=== PATIENT | female | born 1980 | race Two or more races ===

== ENCOUNTER 2016-07-06 23:31 | Emergency (ER) | payer BC, MEDICAID ==
[~2016-07-06] VITALS: Ht 160 cm; Wt 81.6 kg
[2016-07-07 00:04] VITALS: BP 107/79
== END 2016-07-07 05:38 | disposition left against medical advice (07) ==
LOC: ER 23:39
DX: M79.662 Pain in left lower leg (principal); M79.661 Pain in right lower leg; Z53.21 Procedure and treatment not carried out due to patient leaving prior to being seen by health care provider

== ENCOUNTER 2018-11-06 23:53 | Emergency (ER) | payer MEDICAID ==
[~2018-11-06] VITALS: Ht 157.5 cm; Wt 79.4 kg
[~2018-11-06 23:53] MED LIST: ARIP15TA6 PO; CITA-245 PO; GEMF600T7 PO; GLIP-116 PO; HYDR-531 PO; LORA1TAB12 PO; OMEP20TA PO; PANT40T PO; PREG75CA PO
[2018-11-07 00:21] VITALS: BP 124/90
[2018-11-07] MEDS ORDERED: HYDROcodone-ACET 5/325MG TAB PO ONE (03:30)
== END 2018-11-07 04:10 | disposition home or self-care (01) ==
LOC: ER 23:55
DX: S92.412A Displaced fracture of proximal phalanx of left great toe, initial encounter for closed fracture (principal); E11.9 Type 2 diabetes mellitus without complications; E78.5 Hyperlipidemia, unspecified; Z90.49 Acquired absence of other specified parts of digestive tract; Z87.440 Personal history of urinary (tract) infections; Z79.899 Other long term (current) drug therapy; W22.8XXA Striking against or struck by other objects, initial encounter; Y93.01 Activity, walking, marching and hiking; Y92.89 Other specified places as the place of occurrence of the external cause; Y99.8 Other external cause status
CPT/HCPCS: 73630; 82962; 99283; L3260

== ENCOUNTER 2023-12-07 17:55 | Emergency (ER) | payer MEDICAID ==
[~2023-12-07] VITALS: Ht 157.5 cm; Wt 73.7 kg
[~2023-12-07 17:55] MED LIST changes: +GEMF-66 PO; -GEMF600T7 PO; -GLIP-116 PO; +LORA-1123 PO; +LORA-622 PO; -LORA1TAB12 PO; +MONT-8 PO; -PANT40T PO; +SIMV10TA20 PO
[2023-12-07] MEDS: ONDANSETRON ODT 4 MG TAB PO ONE (18:41)
[2023-12-07] MEDS: MECLIZINE HCL 25 MG TAB PO ONE (18:41)
[2023-12-07 18:52] LABS: Basophils # (auto) 0 10 ^3/uL (0-0.2); Basophils % (auto) 0.5 % (0.0-2.0); Eosinophils # (auto) 0.1 10 ^3/uL (0-0.8); Eosinophils % (auto) 0.7 % (0.0-7.0); Hematocrit 36.8 % (36.0-46.0); Hemoglobin 12.2 g/dL (12.2-16.2); Lymphocytes % (auto) 21.6 % (10.0-50.0); Mean Corpuscular Hgb Conc. 33.2 g/dL (32.0-36.0); Mean Corpuscular Volume 81.3 fL (80.0-100.0); Monocytes # (auto) 1.1 10 ^3/uL (0-1.3); Monocytes % (auto) 11.8 % (0.0-12.0); Neutrophils # (auto) 6.1 10 ^3/uL (1.6-8.6); Neutrophils % (auto) 65.4 % (37.0-80.0); Red Blood Cells 4.52 10^6/uL (4.0-5.20); Red Cell Distribution Width 14.7 % (11.8-14.3); White Blood Cell 9.3 10^3/uL (4.4-10.8)
[2023-12-07 19:10] LABS: Alanine Aminotransferase 17 U/L (7-40); Albumin 4.5 g/dL (3.2-4.8); Alkaline Phosphatase 50 U/L (46-116); Anion Gap 8 (5-15); Aspartate Aminotransferase 11 U/L (13-40); BUN/Creatinine Ratio 12.7 (10.0-20.0); Bilirubin, Total 0.8 mg/dL (0.2-1.0); Blood Urea Nitrogen 9 mg/dL (9-23); Calcium 10.2 mg/dL (8.7-10.4); Carbon Dioxide 25 mmol/L (20-30); Chloride 108 mmol/L (98-107); Glucose 84 mg/dL (74-106); Lipase 96 U/L (12-53); Potassium 3.6 mmol/L (3.5-5.1); Sodium 141 mmol/L (136-145); Total Protein 6.9 g/dL (5.7-8.2)
[2023-12-07 20:29] LABS: Urine Bacteria FEW /hpf (None Seen); Urine Blood Negative /uL (Negative); Urine Clarity Turbid (Clear); Urine Color Yellow (Yellow); Urine Mucus FEW (None Seen); Urine Protein, UAD 1+ (Negative); Urine Specific Gravity 1.032 (1.001-1.035); Urine Urobilinogen Normal (Negative); Urine WBC 4 /hpf (0 - 5); Urine pH 5.5 (5.0-9.0)
[2023-12-07 21:00] VITALS: PULSE 97; RESP 18; TEMP 98.7; O2SAT 98
[2023-12-07] MEDS ORDERED: MECL1TAB42 PO (22:35)
[2023-12-07] MEDS ORDERED: ZOFR4T PO (22:35)
[2023-12-07 22:49] VITALS: BP 119/86; PULSE 83; RESP 16; O2SAT 100
== END 2023-12-07 22:35 | disposition home or self-care (01) ==
LOC: ER 17:55
DX: R55 Syncope and collapse (principal); R42 Dizziness and giddiness; E11.9 Type 2 diabetes mellitus without complications; K21.9 Gastro-esophageal reflux disease without esophagitis; E78.5 Hyperlipidemia, unspecified; Z87.442 Personal history of urinary calculi; Z90.49 Acquired absence of other specified parts of digestive tract; Z88.2 Allergy status to sulfonamides; Z88.1 Allergy status to other antibiotic agents
CPT/HCPCS: 36415; 70450; 74176; 80053; 81001; 83605; 83690; 83880; 84484; 85025; 93005; 99284; J8597; Q0162